=== PATIENT | female | born 1955 | race Caucasian/White ===

== ENCOUNTER 2020-01-22 06:43 | Outpatient (CLI) | payer BC, OTHER ==
[2020-01-22 17:58] LABS: Hemoglobin 15.8 g/dL (12.0-16.0); Mean Corpuscular HGB CONC 33.8 g/dL (32.0-36.0); Mean Corpuscular Hemoglobin 31.6 pg (27.0-31.0); Mean Corpuscular Volume 93.3 fL (78.0-98.0); Mean Platelet Volume 9.5 fL (7.4-10.4); Platelet Count 223 thou/uL (130-400); RBC Distribution Width 12.2 % (11.5-14.5); Red Blood Cell (RBC) Count 5.01 mill/uL (4.20-5.40)
[2020-01-22 18:06] LABS: Anion Gap 15 mmol/L (10-20); BUN (Urea Nitrogen) 11 mg/dL (9.8-20.1); Calc. Creatinine Clearance 0 mL/min (70-130); Calcium 9.8 mg/dL (7.8-10.44); Carbon Dioxide 24 mmol/L (23-31); Chloride 107 mmol/L (98-107); Estimated GFR-MDRD 65; Glucose 86 mg/dL (80-115); Potassium 4.6 mmol/L (3.5-5.1); Sodium 141 mmol/L (136-145)
[2020-01-22 18:30] LABS: INR-International Normal Ratio 0.9; PTT 29.8 sec (22.9-36.1); Prothrombin Time 12.5 sec (12.0-14.7)
[2020-01-23 13:11] LABS: SARS-CoV-2 MS2 Positive; SARS-CoV-2 N Gene Negative; SARS-CoV-2 S Gene Negative; SARS-CoV-2 orf1ab Negative
== END 2020-01-22 06:44 | disposition home or self-care (01) ==
LOC: LABBT 06:43
PROVIDERS: ATTEND Internal Medicine Cardiovascular Disease
DX: Z01.812 Encounter for preprocedural laboratory examination (principal); Z11.59 Encounter for screening for other viral diseases; I47.2 Ventricular tachycardia
CPT/HCPCS: 80048; 85027; 85610; 85730; 87635; U0003

== ENCOUNTER 2020-01-27 07:57 | Day surgery (SDC) | payer BC ==
[2020-01-21 12:29] VITALS: BMI 50.8
[2020-01-27] MEDS ORDERED: Vancomycin 1 GM/200 ML BAG ONE (09:05)
[2020-01-27] MEDS ORDERED: Enoxaparin Sodium 30 MG/0.3 ML SYRINGE ONE (09:09)
[2020-01-27] MEDS ORDERED: Fentanyl 100 MCG/2 ML VIAL ONE (09:09)
[2020-01-27] MEDS ORDERED: Propofol 1,000 MG/100 ML VIAL IV ONE (09:10)
[2020-01-27] MEDS ORDERED: Midazolam HCl 2 mg/2 ml Vial ONE (09:46)
[2020-01-27] MEDS ORDERED: PHENYLEPHRINE-NS 100 MCG/ML 10 ML SYRINGE ONE (10:10)
[2020-01-27] MEDS ORDERED: PROPOFOL 200 MG/20 ML VIAL ONE (10:10)
--- NOTE | 2020-01-27 11:18 | RAD ---
EXAM: CHEST ONE VIEW HISTORY: Post pacemaker/AICD placement. COMPARISON: 10/30/2017. FINDINGS: Triple lead left subclavian acid device remains place. Skin clips are seen overlying the left lateral upper chest and axillary region. Cardiac silhouette is enlarged. Pulmonary vasculature is within normal limits. There is suboptimal evaluation left lung base due to enlarged cardiac silhouette and u nderpenetrated technique of the exam. Lungs are otherwise clear. Vascular calcifications are seen in the thoracic aorta. No other interval change. IMPRESSION: 1. No acute cardiopulmonary process. 2. Mild cardiomegaly. 3. Left subclavian AICD device noted in place with skin clips overlying the lateral left upper chest.
== END 2020-01-27 12:30 | disposition home or self-care (01) ==
LOC: CCL 07:57
PROVIDERS: ATTEND Internal Medicine Cardiovascular Disease
PROC: 0JH609Z Insertion of Cardiac Resynchronization Defibrillator Pulse Generator into Chest Subcutaneous Tissue and Fascia, Open Approach (ICD-10-PCS; principal; 2020-01-27)
PROC: 0JPT0PZ Removal of Cardiac Rhythm Related Device from Trunk Subcutaneous Tissue and Fascia, Open Approach (ICD-10-PCS; principal; 2020-01-27)
DX: I47.2 Ventricular tachycardia (principal); I42.8 Other cardiomyopathies; I50.9 Heart failure, unspecified; I44.2 Atrioventricular block, complete; I47.1 Supraventricular tachycardia; E66.01 Morbid (severe) obesity due to excess calories; Z68.43 Body mass index [BMI] 50.0-59.9, adult; Z88.0 Allergy status to penicillin; Z88.1 Allergy status to other antibiotic agents; Z88.5 Allergy status to narcotic agent; Z91.040 Latex allergy status; Z91.048 Other nonmedicinal substance allergy status
CPT/HCPCS: 33264; 71045; 93642; C1882; J1650; J2250; J2704; J3010; J3370

== ENCOUNTER 2025-06-28 15:38 | Outpatient (CLI) | payer MEDICARE | END 2025-06-28 15:39 | disposition home or self-care (01) | LOC: SCSRAD 15:38 | PROVIDERS: ATTEND Family Medicine | DX: R05.1 Acute cough (principal); J81.1 Chronic pulmonary edema | CPT/HCPCS: 71046 ==